=== PATIENT | male | born 1995 | race Hispanic/Latino ===

== ENCOUNTER 2022-04-11 18:14 | Emergency (ER) | payer SELFPAY ==
[2022-04-11] MEDS ORDERED: Dexamethasone 10 MG/ML VIAL ONE (20:07)
== END 2022-04-11 20:21 | disposition home or self-care (01) ==
LOC: ERS 18:14
DX: L23.7 Allergic contact dermatitis due to plants, except food (principal)
CPT/HCPCS: 99282; J1100

== ENCOUNTER 2022-05-26 21:31 | Emergency (ER) | payer SELFPAY | END 2022-05-26 23:05 | disposition home or self-care (01) | LOC: ERS 21:31 | DX: B34.9 Viral infection, unspecified (principal); R11.2 Nausea with vomiting, unspecified; R19.7 Diarrhea, unspecified; Z20.822 Contact with and (suspected) exposure to COVID-19 | CPT/HCPCS: 87804; 99284; U0003; U0005 ==